=== PATIENT | male | born 1965 | race Caucasian/White ===

== ENCOUNTER 2020-05-15 09:39 | Observation (INO) ==
[~2020-05-15 09:39] MED LIST: Bacitracin 50,000 UNIT, Polymyxin B Sulfate 500,000 UNIT, Sodium Chloride IRRigation 1,... IR ONE
[2020-05-15] MEDS ORDERED: *HR* Rocuronium Bromide 50 MG/5 ML VIAL ONE ×2 (10:22→13:06)
[2020-05-15] MEDS ORDERED: *HR* FentaNYL (PF) 100 MCG/2 ML VIAL ONE (10:22)
[2020-05-15] MEDS ORDERED: *HR* Propofol 200 MG/20 ML VIAL IVP ONE (10:22)
[2020-05-15] MEDS ORDERED: Lidocaine -MPF 2% 2 ML VIAL ONE (10:22)
[2020-05-15] MEDS ORDERED: Ondansetron 4 MG/2 ML VIAL ONE (10:22)
[2020-05-15] MEDS ORDERED: *HR* Midazolam HCl 2 MG/2 ML VIAL ONE (10:22)
[2020-05-15] MEDS ORDERED: Dexamethasone 4 MG/ML VIAL ONE (10:26)
[2020-05-15] MEDS ORDERED: *HR* OxyCODONE Immed Rel 5 MG TABLET PO PRN (10:31)
[2020-05-15] MEDS ORDERED: *HR* HYDROmorphone PF 0.5 MG/0.5 ML SYRINGE IVP PRN (10:31)
[2020-05-15] MEDS ORDERED: Acetaminophen IV 1,000 MG/100 ML BAG IVPB ONE (10:31)
[2020-05-15] MEDS ORDERED: Ondansetron 4 MG/2 ML VIAL IVP ONE (10:31)
[2020-05-15] MEDS ORDERED: Scopolamine Patch 1.5 MG PATCH.TD72 TD ONE (10:32)
[2020-05-15] MEDS ORDERED: Lidocaine HCL 4 ML Topical Solution (Laryng-O-Jet Kit Sterile Pak) TP ONE (10:35)
[2020-05-15] MEDS ORDERED: CeFAZolin Syr 3,000MG/30 ML 3,000 MG/30 ML SYRINGE IVPB ONE (10:42)
[2020-05-15] MEDS ORDERED: Ringers Solution, Lactated 1,000 ML IVC SCH ×2 (10:45)
[2020-05-15] MEDS ORDERED: *HR* Remifentanil 1 MG VIAL IVP ONE ×2 (11:40→13:35)
[2020-05-15] MEDS ORDERED: EPHEDrine 50 MG/ML VIAL ONE (12:25)
[2020-05-15] MEDS ORDERED: *HR* Phenylephrine 10 MG/ML VIAL ONE (12:26)
[2020-05-15] MEDS ORDERED: *HR* Vasopressin 20 UNIT/ML VIAL ONE (13:07)
[2020-05-15] MEDS ORDERED: *HR* PHENYLEPHRINE 1,000 MCG/10 ML SYRINGE IVP ONE (13:23)
[2020-05-15] MEDS ORDERED: Naloxone 0.4 MG/ML INJ IVP PRN (16:15)
[2020-05-15] MEDS ORDERED: Acetaminophen 325 MG TABLET PO PRN (16:15)
[2020-05-15] MEDS ORDERED: NON-FORMULARY MEDICATION 1 EACH EACH (Tadalafil [Cialis] 20 MG) PO PRN (16:15)
[2020-05-15] MEDS: *HR* OxyCODONE Immed Rel 5 MG TABLET PO PRN ×2 (17:21→22:45)
[2020-05-15] MEDS: Ringers Solution, Lactated 1,000 ML IVC SCH ×2 (17:21→21:52)
[2020-05-15] MEDS: gemfibroziL 600 MG TABLET PO SCH (17:21)
[2020-05-15] MEDS ORDERED: Chloraseptic Spray 177 ML BOTTLE MM PRN (17:43)
[2020-05-15] MEDS: *HR* HYDROcodone/Acet 5/325 mg TABLET PO PRN (19:50)
[2020-05-15] MEDS: Gabapentin 300 MG CAPSULE PO SCH (19:50)
[2020-05-15] MEDS: ceFAZolin 3,000 MG in 0.9 % Sodium Chloride 100 ML IVPB SCH (19:51)
[2020-05-15] MEDS: sulfaSALAzine 500 MG TABLET PO SCH (20:17)
[2020-05-15] MEDS ORDERED: PRAVASTATIN SODIUM 20 MG PO SCH (21:00)
[2020-05-15] MEDS: Ondansetron 4 MG/2 ML VIAL IVP PRN (22:49)
[2020-05-16] MEDS ORDERED: *HR* Promethazine 25 MG/ML VIAL IVP PRN (00:48)
[2020-05-16] MEDS: *HR* HYDROcodone/Acet 5/325 mg TABLET PO PRN ×3 (01:31→20:16)
[2020-05-16] MEDS: *HR* OxyCODONE Immed Rel 5 MG TABLET PO PRN ×4 (02:55→22:32)
[2020-05-16] MEDS: ceFAZolin 3,000 MG in 0.9 % Sodium Chloride 100 ML IVPB SCH (04:13)
[2020-05-16] MEDS: Multivit/Ca/Min/Fe/FA 1 TAB TABLET PO SCH (09:43)
[2020-05-16] MEDS: Ascorbic Acid 500 MG TABLET PO SCH (09:43)
[2020-05-16] MEDS: Lisinopril-HCTZ 20-12.5mg TABLET PO SCH (09:43)
[2020-05-16] MEDS: Aspirin Enteric Coated 81 MG Tablet PO SCH (09:43)
[2020-05-16] MEDS: sulfaSALAzine 500 MG TABLET PO SCH ×2 (09:43→20:17)
[2020-05-16] MEDS: Gabapentin 300 MG CAPSULE PO SCH ×2 (09:44→20:17)
[2020-05-16] MEDS: gemfibroziL 600 MG TABLET PO SCH ×2 (09:44→17:03)
[2020-05-16] MEDS: Ringers Solution, Lactated 1,000 ML IVC SCH (12:19)
[2020-05-16] MEDS: Ondansetron 4 MG/2 ML VIAL IVP PRN (12:24)
[2020-05-16] MEDS ORDERED: Dextrose Gel 15 GM/37.5 ML TUBE PO PRN ×2 (14:41)
[2020-05-16] MEDS ORDERED: *HR* Dextrose 50 % in Water (Vial) 50 ML VIAL IVP PRN (14:41)
[2020-05-16] MEDS ORDERED: D5% in Water 1,000 ML IVC PRN (14:41)
[2020-05-16 15:46] LABS: Estimated Average Glucose 194 mg/dl; Hemoglobin A1C 8.4 %
[2020-05-16] MEDS ORDERED: Scopolamine Patch 1.5 MG PATCH.TD72 TD SCH (16:30)
[2020-05-16] MEDS: Insulin LISPRO 300 UNITS/3 ML VIAL SQ SCH (17:02)
[2020-05-16] MEDS ORDERED: Insulin LISPRO 300 UNITS/3 ML VIAL SQ SCH (21:00)
[2020-05-16] MEDS: Insulin DETEMIR 100 UNIT/ML X5UNITS SQ SCH (22:32)
[2020-05-17] MEDS: Ondansetron 4 MG/2 ML VIAL IVP PRN (01:39)
[2020-05-17 06:37] LABS: Basophils # 0.1 K/mcL (0.0-0.2); Basophils % 0.7 %; Eosinophils # 0.2 K/mcL (0.0-0.6); Eosinophils % 1.8 %; Hematocrit 31.9 % (37.5-50.1); Hemoglobin 10.4 g/dL (12.9-16.9); Immature Granulocytes % 0.5 % (0-4); Lymphocytes # 1.5 K/mcL (0.6-4.6); Lymphocytes % 18.1 %; Mean Corpuscular HGB Conc 32.6 g/dL (31.6-35.5); Mean Corpuscular Hemoglobin 30.9 pg (28.0-33.3); Mean Corpuscular Volume 94.7 fL (83.0-100.0); Mean Platelet Volume 9.7 fL (9.4-12.4); Monocytes % 11.8 %; Neutrophils # 5.7 K/mcL (1.6-8.9); Platelet Count 215 K/mcL (140-400); Red Blood Count 3.37 M/mcL (4.19-5.50); Red Cell Distribution Width 13.2 % (11.5-14.5); Segmented Neutrophils % 67.1 %; White Blood Count 8.4 K/mcL (4.3-11.1)
[2020-05-17 06:59] LABS: Alanine Aminotransferase 7 Units/L (7-52); Albumin 3.5 g/dL (3.5-5.7); Albumin/Globulin Ratio 1.8 (1.1-2.2); Alkaline Phosphatase 42 Units/L (34-104); Aspartate Amino Transferase 17 Units/L (13-39); BUN/Creatinine Ratio 17 (6-26); Bilirubin,Total 0.6 mg/dL (0.3-1.0); Blood Urea Nitrogen 16 mg/dL (6-20); Calcium 9.1 mg/dL (8.6-10.3); Carbon Dioxide 26 mEq/L (23-29); Chloride 100 mEq/L (98-107); Glucose 168 mg/dL (70-105); Osmolality,Calculated 283 (280-300); Potassium 3.8 mEq/L (3.5-5.1); Sodium 134 mEq/L (136-145); Total Protein 5.5 g/dL (6.4-8.9); eGFR For African Americans > 60 (> 60); eGFR For Non-African Americans > 60 (> 60)
[2020-05-17] MEDS: Aspirin Enteric Coated 81 MG Tablet PO SCH (08:17)
[2020-05-17] MEDS: Multivit/Ca/Min/Fe/FA 1 TAB TABLET PO SCH (08:17)
[2020-05-17] MEDS: Ascorbic Acid 500 MG TABLET PO SCH (08:18)
[2020-05-17] MEDS: sulfaSALAzine 500 MG TABLET PO SCH ×2 (08:18→20:22)
[2020-05-17] MEDS: Gabapentin 300 MG CAPSULE PO SCH ×2 (08:18→20:21)
[2020-05-17] MEDS: gemfibroziL 600 MG TABLET PO SCH ×2 (08:19→16:34)
[2020-05-17] MEDS: Lisinopril-HCTZ 20-12.5mg TABLET PO SCH (08:19)
[2020-05-17] MEDS: Insulin LISPRO 300 UNITS/3 ML VIAL SQ SCH ×3 (08:20→16:09)
[2020-05-17] MEDS: Acetaminophen 325 MG TABLET PO SCH ×2 (11:31→16:33)
[2020-05-17] MEDS: Famotidine 20 MG TABLET PO SCH ×2 (11:31→20:22)
[2020-05-17] MEDS: Simethicone 80 MG TAB.CHEW PO SCH ×3 (11:31→20:22)
[2020-05-17] MEDS: 0.9 % Sodium Chloride 1,000 ML IVC SCH ×2 (11:32→18:52)
[2020-05-17] MEDS: Insulin DETEMIR 100 UNIT/ML X5UNITS SQ SCH (20:21)
[2020-05-17] MEDS: *HR* HYDROcodone/Acet 5/325 mg TABLET PO PRN (20:28)
[2020-05-18] MEDS: Acetaminophen 325 MG TABLET PO SCH ×4 (00:15→17:54)
[2020-05-18] MEDS: 0.9 % Sodium Chloride 1,000 ML IVC SCH (02:22)
[2020-05-18] MEDS: gemfibroziL 600 MG TABLET PO SCH ×2 (08:28→16:50)
[2020-05-18] MEDS: sulfaSALAzine 500 MG TABLET PO SCH ×2 (08:28→20:46)
[2020-05-18] MEDS: Simethicone 80 MG TAB.CHEW PO SCH ×3 (08:28→20:46)
[2020-05-18] MEDS: Ascorbic Acid 500 MG TABLET PO SCH (08:28)
[2020-05-18] MEDS: Famotidine 20 MG TABLET PO SCH ×2 (08:28→20:46)
[2020-05-18] MEDS: Multivit/Ca/Min/Fe/FA 1 TAB TABLET PO SCH (08:28)
[2020-05-18] MEDS: Lisinopril-HCTZ 20-12.5mg TABLET PO SCH (08:28)
[2020-05-18] MEDS: Gabapentin 300 MG CAPSULE PO SCH ×2 (08:28→20:46)
[2020-05-18] MEDS: Aspirin Enteric Coated 81 MG Tablet PO SCH (08:29)
[2020-05-18] MEDS: Insulin LISPRO 300 UNITS/3 ML VIAL SQ SCH ×3 (08:30→16:36)
[2020-05-18 09:28] LABS: Basophils % 0.3 %; Eosinophils # 0.3 K/mcL (0.0-0.6); Eosinophils % 4.7 %; Hemoglobin 10.2 g/dL (12.9-16.9); Immature Granulocytes % 0.5 % (0-4); Lymphocytes # 1.2 K/mcL (0.6-4.6); Lymphocytes % 18.5 %; Mean Corpuscular HGB Conc 32.9 g/dL (31.6-35.5); Mean Corpuscular Volume 97.2 fL (83.0-100.0); Mean Platelet Volume 9.6 fL (9.4-12.4); Monocytes # 0.7 K/mcL (0.0-1.3); Monocytes % 11.1 %; Neutrophils # 4.3 K/mcL (1.6-8.9); Platelet Count 188 K/mcL (140-400); Red Blood Count 3.19 M/mcL (4.19-5.50); Red Cell Distribution Width 12.7 % (11.5-14.5); Segmented Neutrophils % 64.9 %; White Blood Count 6.6 K/mcL (4.3-11.1)
[2020-05-18 09:38] LABS: BUN/Creatinine Ratio 13 (6-26); Blood Urea Nitrogen 11 mg/dL (6-20); Calcium 8.6 mg/dL (8.6-10.3); Carbon Dioxide 24 mEq/L (23-29); Chloride 103 mEq/L (98-107); Glucose 143 mg/dL (70-105); Osmolality,Calculated 284 (280-300); Potassium 3.5 mEq/L (3.5-5.1); Sodium 136 mEq/L (136-145); eGFR For African Americans > 60 (> 60); eGFR For Non-African Americans > 60 (> 60)
[2020-05-18] MEDS: *HR* OxyCODONE Immed Rel 5 MG TABLET PO PRN ×2 (12:10→20:51)
[2020-05-18] MEDS: *HR* HYDROcodone/Acet 5/325 mg TABLET PO PRN (16:33)
[2020-05-18] MEDS: Insulin DETEMIR 100 UNIT/ML X5UNITS SQ SCH (20:51)
[2020-05-19] MEDS: Acetaminophen 325 MG TABLET PO SCH ×2 (02:17→05:17)
[2020-05-19] MEDS: *HR* OxyCODONE Immed Rel 5 MG TABLET PO PRN (04:37)
[2020-05-19 05:45] LABS: BUN/Creatinine Ratio 16 (6-26); Blood Urea Nitrogen 12 mg/dL (6-20); Calcium 8.3 mg/dL (8.6-10.3); Carbon Dioxide 22 mEq/L (23-29); Chloride 102 mEq/L (98-107); Glucose 129 mg/dL (70-105); Osmolality,Calculated 281 (280-300); Potassium 3.4 mEq/L (3.5-5.1); Sodium 135 mEq/L (136-145); eGFR For African Americans > 60 (> 60); eGFR For Non-African Americans > 60 (> 60)
[2020-05-19 06:36] VITALS: BP 126/78
[2020-05-19] MEDS: Insulin LISPRO 300 UNITS/3 ML VIAL SQ SCH (08:19)
[2020-05-19] MEDS: Gabapentin 300 MG CAPSULE PO SCH (08:33)
[2020-05-19] MEDS: sulfaSALAzine 500 MG TABLET PO SCH (08:33)
[2020-05-19] MEDS: Simethicone 80 MG TAB.CHEW PO SCH (08:33)
[2020-05-19] MEDS: Ascorbic Acid 500 MG TABLET PO SCH (08:33)
[2020-05-19] MEDS: Famotidine 20 MG TABLET PO SCH (08:33)
[2020-05-19] MEDS: gemfibroziL 600 MG TABLET PO SCH (08:33)
[2020-05-19] MEDS: Aspirin Enteric Coated 81 MG Tablet PO SCH (08:34)
[2020-05-19] MEDS: Multivit/Ca/Min/Fe/FA 1 TAB TABLET PO SCH (08:34)
[2020-05-19] MEDS: Lisinopril-HCTZ 20-12.5mg TABLET PO SCH (08:34)
== END 2020-05-19 11:55 ==
LOC: SAMDAY 09:39 → 3NENU 09:39
PROVIDERS: ADMIT Orthopaedic Surgery Orthopaedic Surgery of the Spine; ATTEND Orthopaedic Surgery Orthopaedic Surgery of the Spine